=== PATIENT | male | born 1990 | race Hispanic/Latino ===

== ENCOUNTER 2021-03-09 02:38 | Emergency (ER) | payer SELFPAY ==
[~2021-03-09] VITALS: Ht 177.8 cm; Wt 77.1 kg
[2021-03-09] MEDS ORDERED: CIPR-278 PO (03:10)
[2021-03-09] MEDS ORDERED: LEVOFLOXACIN 750 MG/D5W 150 ML 150 ML ONE (03:30)
[2021-03-09 05:48] VITALS: BP 120/76
[2021-03-09] MEDS ORDERED: LEVOFLOXACIN 750 MG/D5W 150 ML 150 ML IV SCH (09:00)
== END 2021-03-09 05:49 | disposition home or self-care (01) ==
LOC: EDH 02:38
DX: L03.115 Cellulitis of right lower limb (principal); L03.116 Cellulitis of left lower limb; F14.10 Cocaine abuse, uncomplicated
CPT/HCPCS: 96365; 99284; J1956